=== PATIENT | male | born 1955 | race Hispanic/Latino ===

== ENCOUNTER 2022-06-07 20:30 | Emergency (ER) | payer MEDICARE ==
--- NOTE | 2022-06-07 23:47 | Emergency Department Report ---
ED N/V/D HPI - General Chief complaint: Nausea/Vomiting/Diarrhea Stated complaint: N/V, AMS Time Seen by Provider: 06/07/22 22:34 Source: EMS Mode of arrival: Stretcher Limitations: Altered Mental Status - History of Present Illness Initial comments: 67 yo M with h/o Liver Cirrhosis who was sent in by to be evaluated for AMS and nausea with non bloody emesis for the last 2 days. Pt is very sleeping but easy to arose. No fever or chills or any other modifying or associated factors reported. - Related Data Allergies Allergy/AdvReac Type Severity Reaction Status Date / Time No Known Allergies Allergy Unverified 06/07/22 22:35 ED Review of Systems ROS: Stated complaint: N/V, AMS Other details as noted in HPI Comment: All other systems reviewed and negative Gastrointestinal: nausea, vomiting, other (abdominal distension ). denies: constipation ED Past Medical Hx - Past Medical History Previous Medical History?: Yes Hx Liver Disease: Yes (cirrhosis) - Social History Smoking Status: Current Every Day Smoker ED Physical Exam - General Limitations: Altered Mental Status General appearance: alert, lethargic - Head Head exam: Present: atraumatic, normal inspection - Eye Eye exam: Present: normal appearance Pupils: Present: normal accommodation - ENT ENT exam: Present: normal exam, normal orophraynx, mucous membranes moist - Neck Neck exam: Present: normal inspection, full ROM. Absent: tenderness - Respiratory Respiratory exam: Present: normal lung sounds bilaterally. Absent: respiratory distress, accessory muscle use - Cardiovascular Cardiovascular Exam: Present: regular rate, normal rhythm, normal heart sounds - GI/Abdominal GI/Abdominal exam: Present: soft, distended, normal bowel sounds. Absent: tenderness - Extremities Exam Extremities exam: Present: normal inspection, normal capillary refill. Absent: pedal edema - Back Exam Back exam: Absent: tenderness - Neurological Exam Neurological exam: Present: other (sleepy but easily arosable ) - Skin Skin exam: Present: warm, normal color ED Course Vital Signs 06/07/22 06/07/22 06/07/22 21:38 21:45 21:53 Temperature 98.9 F Pulse Rate 59 L 54 L 58 L Respiratory 10 L 9 L 18 Rate Blood Pressure 127/64 127/83 Blood Pressure [Left] O2 Sat by Pulse 100 100 97 Oximetry 06/07/22 06/07/22 06/08/22 21:56 23:45 00:28 Temperature Pulse Rate 58 L 59 L Respiratory 15 18 Rate Blood Pressure Blood Pressure 119/57 127/77 [Left] O2 Sat by Pulse 98 97 97 Oximetry ED Medical Decision Making - Lab Data Result diagrams: 06/08/22 00:06 06/08/22 00:06 - EKG Data -: EKG Interpreted by Me EKG shows normal: sinus rhythm Rate: bradycardia - EKG Data 06/07/22 23:52 noted with sinus melvin--arrhythmia at 53 bpm with very low voltage --but with no obvious ST depression or elevation-- - Medical Decision Making nausea and emesis with history of PUD and Liver Cirrhosis -- I'm worried about confusion with elevated ammonia -- or any other systemic infection so will order routine labs CBC, CMP, UA and CT abd/pel for further imaging evaluation-- CT abd/pel FINDINGS: Lung bases show a small left pleural effusion with associated atelecta tic change. Minimal atelectasis is seen in the right base. No pneumoperitoneum. Massive ascites is n oted. Liver shows a moderately cirrhotic appearance. Spleen is not significantly enlarged. I do not see prominent varices. No abnormalities seen of the gallbladder, bile ducts, pancreas, adrenals, or right kidney. Tiny left renal cyst. No urinary obstructive changes. No lymphadenopathy. Colonic diverticulosis without obvious evidence of diverticulitis. Appendix within normal limits. No bowel obstruction. Small hiatal hernia. No significant abdominal wall herniation. No pelvic masses. Mottled appearance of the omentum probably relates to the massive ascites and edema though I could not exclude mild nodularity. IMPRESSION: 1. Cirrhosis of the liver with massive ascites. The omentum shows a question of mild nodularity but I believe this is more likely simply edema in this setting. This could be followed however, pa rticularly after paracentesis to better evaluate this area. 2. Small left pleural effusion with associated atelectatic change Pt continue denies any sob/dyspnea even though ascites is large but since this patient is not symptomatic will discharge with precaution to return is sob develops. Lab also reviewed and noted normal including the ammonia level. Critical care attestation.: If time is entered above; I have spent that time in minutes in the direct care of this critically ill patient, excluding procedure time. ED Disposition Clinical Impression: Ascites of liver Nausea and vomiting Qualifiers: Vomiting type: unspecified Qualified Code(s): R11.2 - Nausea with vomiting, unspecified Liver cirrhosis Qualifiers: Hepatic cirrhosis type: unspecified hepatic cirrhosis Ascites presence: with ascites Qualified Code(s): K74.60 - Unspecified cirrhosis of liver Disposition: 01 HOME / SELF CARE / HOMELESS Is pt being admited?: No Does the pt Need Aspirin: No Condition: Stable Instructions: Nausea and Vomiting, Adult, [id number], Nausea, Adult, [id number], Nausea and Vomiting, Adult, Ascites Additional Instructions: Please do not hesitate to call or return to emergency room if shortness of breath develop at this could be a complication from her large ascites and emergent paracentesis or drainage might be indicated at that point Call and schedule follow-up with your primary doctor in the next 3 to 5 days for progress Referrals: SOLO FANG MD [Primary Care Provider] - 3-5 Days Time of Disposition: 04:34
[2022-06-08] MEDS: ONDANSETRON 4 MG/2 ML INJ IV ONE ×2 (00:10→05:35)
[2022-06-08 00:26] LABS: Basophils % (Auto) 0.3 % (0.0-1.8); Eosinophils % (Auto) 0.2 % (0.0-4.3); Hematocrit 31.6 % (35.5-45.6); Hemoglobin 10.4 gm/dl (11.8-15.2); Lymphocytes # (Auto) 1.9 K/mm3 (1.2-5.4); Lymphocytes % (Auto) 23.4 % (13.4-35.0); Mean Corpuscular HGB Conc 33 % (32-34); Mean Corpuscular Volume 93 fl (84-94); Monocytes # (Auto) 0.7 K/mm3 (0.0-0.8); Monocytes % (Auto) 8.7 % (0.0-7.3); Platelet Count 268 K/mm3 (140-440); Red Blood Count 3.39 M/mm3 (3.65-5.03); Red Cell Distribution Width 16.1 % (13.2-15.2)
[2022-06-08 00:38] LABS: RBC,Urine < 1.0 /HPF (0.0-6.0); WBC,Urine < 1.0 /HPF (0.0-6.0)
[2022-06-08 00:41] LABS: Color,Urine Yellow (Yellow)
[2022-06-08 01:30] LABS: Alanine Aminotransferase 11 units/L (7-56); Albumin 3.4 g/dL (3.9-5); BUN/Creatinine Ratio 12; Blood Urea Nitrogen 13 mg/dL (9-20); Calcium 8.7 mg/dL (8.4-10.2); Hemolysis Index 61
--- NOTE | 2022-06-08 03:18 | Cat Scan Report ---
CT ABDOMEN AND PELVIS WITH CONTRAST INDICATION: Nausea, Vomiting and Diarrhea CONTRAST: 100 cc Omnipaque 350 IV COMPARISON: None available. All CT scans at this location are performed using CT dose reduction for ALARA by means of automated e xposure control. FINDINGS: Lung bases show a small left pleural effusion with associated atelectatic change. Minimal a telectasis is seen in the right base. No pneumoperitoneum. Massive ascites is noted. Liver shows a mo derately cirrhotic appearance. Spleen is not significantly enlarged. I do not see prominent varices. No abnormalities seen of the gallbladder, bile ducts, pancreas, adrenals, or right kidney. Tiny left renal cyst. No urinary obstructive changes. No lymphadenopathy. Colonic diverticulosis without obviou s evidence of diverticulitis. Appendix within normal limits. No bowel obstruction. Small hiatal herni a. No significant abdominal wall herniation. No pelvic masses. Mottled appearance of the omentum prob ably relates to the massive ascites and edema though I could not exclude mild nodularity. IMPRESSION: 1. Cirrhosis of the liver with massive ascites. The omentum shows a question of mild nodularity but I believe this is more likely simply edema in this setting. This could be followed however, particular ly after paracentesis to better evaluate this area. 2. Small left pleural effusion with associated atelectatic change Signer Name: Salo Hernandes MD Signed: 06/08/2022 3:13 AM Workstation Name: [id number]
[2022-06-08] MEDS ORDERED: ONDANSETRON 4 MG/2 ML INJ IV ONE (06:03)
[2022-06-08 06:06] VITALS: BP 110/82
--- NOTE | 2022-06-09 10:30 | Electrocardiograph Report ---
[facility] Test Date: 2022-06-07 Test Time: 21:37:44 Pat Name: PING ERICKSON Department: Room: Gender: M [employer]: : [id number] Requested By: RODRIGO ENG Order Number: [id number] Reading MD: John Yang Measurements Intervals [place] Rate: 53 P: 60 SD: 167 QRS: 53 QRSD: 92 T: 30 QT: 514 QTc: 482 Interpretive Statements Slow sinus arrhythmia Low voltage, extremity leads No previous ECG available for comparison Electronically Signed On 06-09-2022 10:30:02 EDT by John Yang
== END 2022-06-08 05:40 | disposition home or self-care (01) ==
LOC: ED 20:30
DX: R11.2 Nausea with vomiting, unspecified (principal); K59.00 Constipation, unspecified
CPT/HCPCS: 36415; 74177; 80053; 81001; 82140; 83690; 84484; 85025; 93005; 96374; 99284; J2405; Q9967; 80320; G0480